=== PATIENT | female | born 1955 | race Caucasian/White ===

== ENCOUNTER 2019-04-21 09:02 | Outpatient (CLI) | payer OTHER, SELFPAY ==
--- NOTE | 2019-04-21 09:20 | EST_ITS ---
Patient Info Name: Moon Uriarte Age: 63 years : 1955 Gender: Female Ht: 64 in Wt: 197 lbs BSA: 2.05 m2 HR: 68 bpm BP: 135 / 99 mmHg Heart Rhythm: Sinus Rhythm Exam Date: 04/21/2019 11:02 AM Exam Location: [facility] Stress Patient Status: Outpatient Admit Date: 04/21/2019 Staff Ordering Physician: Jorge Chacko NP Attending Provider: Jorge Chacko NP Exercise Technologist: Moo Nieto RDCS, RT Exercise Physician: Isidoro Oh DO Exam Type: CA stress test treadmill Study Info Indications R42 - Dizziness and giddiness An exercise stress test was performed. Summary 1. 1. Negative Ryan exercise stress test for ischemic ST changes by ECG criteria. 2. 2. Mildly reduced functional capacity, achieving 7 METs of workload. 3. 3. Appropriate HR response to exercise. 4. 4. Appropriate HR recovery at 1 minute post exercise. 5. 5. No imaging with stress testing. 6. 6. Patient informed of the above results. Protocol: Ryan Stress ECG Details Stage: REST Duration (min): 1 min : 29 sec Speed (mph): 0.0 Grade (%): 0 HR (bpm): 79 SBP (mmHg): 135 DBP (mmHg): 99 METS: --- Stage: REST Duration (min): 4 min : 47 sec Speed (mph): 0.0 Grade (%): 0 HR (bpm): 83 SBP (mmHg): 135 DBP (mmHg): 99 METS: --- Stage: STAGE 1 Duration (min): 1 min : 0 sec Speed (mph): 1.7 Grade (%): 10 HR (bpm): 106 SBP (mmHg): 135 DBP (mmHg): 99 METS: --- Stage: STAGE 1 Duration (min): 2 min : 0 sec Speed (mph): 1.7 Grade (%): 10 HR (bpm): 117 SBP (mmHg): 135 DBP (mmHg): 99 METS: --- Stage: STAGE 1 Duration (min): 3 min : 0 sec Speed (mph): 1.7 Grade (%): 10 HR (bpm): 129 SBP (mmHg): 135 DBP (mmHg): 99 METS: --- Stage: STAGE 2 Duration (min): 1 min : 0 sec Speed (mph): 2.5 Grade (%): 12 HR (bpm): 138 SBP (mmHg): 135 DBP (mmHg): 99 METS: --- Stage: STAGE 2 Duration (min): 2 min : 0 sec Speed (mph): 2.5 Grade (%): 12 HR (bpm): 144 SBP (mmHg): 130 DBP (mmHg): 40 METS: --- Stage: STAGE 2 Duration (min): 2 min : 59 sec Speed (mph): 2.5 Grade (%): 12 HR (bpm): 149 SBP (mmHg): 130 DBP (mmHg): 40 METS: --- Stage: RECOVERY Duration (min): 1 min : 0 sec Speed (mph): 0.0 Grade (%): 0 HR (bpm): 124 SBP (mmHg): 130 DBP (mmHg): 40 METS: --- Stage: RECOVERY Duration (min): 2 min : 0 sec Speed (mph): 0.0 Grade (%): 0 HR (bpm): 111 SBP (mmHg): 130 DBP (mmHg): 40 METS: --- Stage: RECOVERY Duration (min): 3 min : 0 sec Speed (mph): 0.0 Grade (%): 0 HR (bpm): 100 SBP (mmHg): 141 DBP (mmHg): 89 METS: --- Stage: RECOVERY Duration (min): 3 min : 0 sec Speed (mph): 0.0 Grade (%): 0 HR (bpm): 100 SBP (mmHg): 141 DBP (mmHg): 89 METS: --- Rest HR: 83 bpm
--- NOTE | 2019-04-23 12:31 | WPDHOLTEREM ---
Holter/Event Monitor Holter/Event Monitor Date of procedure: 04/21/19 Procedure Type: 24 hour holter monitor Indications: Dizziness Conclusion: 1. 24 hour holter monitor on 04/21/19. 2. Underlying rhythm is sinus rhythm. HR range 44-126 bpm; average HR 70 bpm. 3. There are 3 premature supraventricular complexes. No supraventricular tachycardia. 4. No premature ventricular complexes. No ventricular tachycardia. 5. No sinoatrial or atrioventricular blocks. No significant pauses greater than 2 seconds. 6. Patient reports symptoms of chest pain which demonstrate sinus rhythm, 68-85 bpm.
== END 2019-04-21 09:03 | disposition home or self-care (01) ==
PROVIDERS: PCP Family Medicine; Visit Provider Nurse Practitioner Family
DX: R42 Dizziness and giddiness (principal); R55 Syncope and collapse
CPT/HCPCS: 93017; 93225; 93226

== ENCOUNTER 2020-04-05 11:26 | Outpatient (NON) | payer OTHER, SELFPAY ==
[2020-04-05 14:17] LABS: Influenza Control Positive
[2020-04-05 21:58] LABS: SARS-CoV-2 RNA PCR Positive
== END 2020-04-05 11:27 ==
LOC: ANHCOVIDDT 11:27
PROVIDERS: PCP Family Medicine; Visit Provider Nurse Practitioner Family
DX: U07.1 COVID-19 (principal); R50.9 Fever, unspecified
CPT/HCPCS: 87804; C9803; U0003; U0005

== ENCOUNTER → 2020-06-14 17:03 | Outpatient (CLI) | payer OTHER, SELFPAY ==
--- NOTE | ~2020-06-14 | MM_ITS ---
EXAMINATION: MM scrn go implant BI w maria m HISTORY: Screening mammogram TECHNIQUE: Craniocaudal and mediolateral oblique 3-D tomosynthesis images with implant displacement a nd synthetic 2-D images were generated. Craniocaudal and mediolateral oblique views of the breasts wi thout implant displacement were obtained using full field digital mammography. CAD analysis was submi tted and interpreted. COMPARISON: 1014 BREAST PARENCHYMAL COMPOSITION: There are scattered areas of fibroglandular density. FINDINGS: There is no evidence of suspicious mass, calcification, or architectural distortion to sugg est malignancy in either breast. There has been no suspicious interval change. IMPRESSION: 1. No mammographic evidence of malignancy. 2. Recommend routine screening mammography in one year. BI-RADS Category 1: Negative Reviewed, dictated and finalized at location A.
== END ==
PROVIDERS: PCP Family Medicine; Visit Provider Nurse Practitioner Obstetrics & Gynecology
DX: Z12.31 Encounter for screening mammogram for malignant neoplasm of breast (principal)
CPT/HCPCS: 77063; 77067

== ENCOUNTER → 2020-07-06 09:16 | Outpatient (CLI) | payer OTHER, SELFPAY ==
--- NOTE | ~2020-07-06 | XR_ITS ---
EXAMINATION: XR shoulder RT min 2V DATE: 07/06/2020 09:55 INDICATION: Right shoulder impingement syndrome and pain. TECHNIQUE: 4 views of right shoulder were obtained. COMPARISON: None. FINDINGS: Bone alignment is normal. No fracture. There is mild osteoarthritis of glenohumeral joint a nd moderate osteoarthritis of acromioclavicular joint. IMPRESSION: 1. Polyarticular osteoarthritis. Reviewed, dictated and finalized at location B.
--- NOTE | ~2020-07-06 | XR_ITS ---
EXAMINATION: XR shoulder LT min 2V DATE: 07/06/2020 09:55 INDICATION: Left shoulder impingement syndrome. Left shoulder pain. TECHNIQUE: 4 views of left shoulder were obtained. COMPARISON: None. FINDINGS: Bone alignment is normal. No fracture. There is mild osteoarthritis of the glenohumeral gage nt and moderate osteoarthritis of the acromioclavicular joint. There is mild calcific tendinitis of t he rotator cuff. IMPRESSION: 1. Polyarticular osteoarthritis. 2. Mild calcific tendinitis of the rotator cuff. Reviewed, dictated and finalized at location B.
== END ==
PROVIDERS: PCP Family Medicine; Visit Provider Family Medicine
DX: M75.40 Impingement syndrome of unspecified shoulder (principal); M19.012 Primary osteoarthritis, left shoulder; M19.011 Primary osteoarthritis, right shoulder
CPT/HCPCS: 73030

== ENCOUNTER → 2020-09-28 17:51 | Outpatient (CLI) | payer OTHER, SELFPAY ==
--- NOTE | ~2020-09-28 | DEXA_ITS ---
Bone Density Report Name: Moon Uriarte Age: 64 Sex: Female Ethnicity: White Date of : 1955 Indication: postmenopausal; screening for osteoporosis; Referring Provider: Hung, Pallavi Bro Study: Bone densitometry was performed. Exam Date: September 28, 2020 Accession number: [id number] Bone Density: Region BMD T-score Z-score Classification AP Spine (L1-L4) 1.040 -0.1 1.5 Normal Femoral Neck (Left) 0.869 0.2 1.6 Normal Total Hip (Left) 0.945 0.0 1.1 Normal Femoral Neck (Right) 0.903 0.5 1.9 Normal Total Hip (Right) 0.875 -0.6 0.5 Normal Total Hip Mean 0.910 -0.3 0.8 Normal World Health Organization criteria for BMD impression classify patients as: Normal (T-score at or above -1.0), Osteopenia (T-score between -1.0 and -2.5), or Osteoporosis (T-score at or below -2.5). 10-year Fracture Risk: FRAX not reported because: All T-scores for Spine Total, Hip Total, Femoral Neck at or above -1.0 Previous Exams: Region Exam Age BMD T-score BMD Change BMD Change Date g/cm2 vs Baseline vs Previous AP Spine(L1-L4) 09/28/2020 64 1.040 -0.1 -0.023* -0.023* 12/28/2010 55 1.063 0.1 Total Hip(Left) 09/28/2020 64 0.945 0.0 0.017 0.017 12/28/2010 55 0.929 -0.1 Total Hip(Right) 09/28/2020 64 0.875 -0.6 0.001 0.001 12/28/2010 55 0.874 -0.6 *Denotes significance at 95% confidence level, LSC for AP Spine = 0.022 g/cm2, LSC for Total Hip = 0.027 g/cm2 Clinical Information Provided by Patient: Patient maximum height was 64 Menopause Age: 54 No regular weight bearing exercise Does not regularly consume dairy products Onset of menses at age 18 Number of children 5 Impression: The patient has normal bone mass. The BMD for the AP Spine(L1-L4) decreased, changing by -0.023 since the last DXA exam. Discussion: BONE DENSITY IS ABOVE THE MINIMUM DESIRABLE LEVEL AT ALL SKELETAL SITES TESTED. This patient?s bone mineral density is above the minimum desirable level (T-score -1.0 or better) at all sites measured. The patient should follow a healthful lifestyle (good nutrition with adequate calcium and vitamin D, and appropriate weight-bearing exercise). Follow-Up: Consider repeating this study in 3 to 4 years to reassess this patient's status, or sooner if there is some new clinical indication. Reported by: [facility] on 09/28/2020 6:11:00 PM.
== END ==
PROVIDERS: PCP Family Medicine; Visit Provider Nurse Practitioner Obstetrics & Gynecology
DX: Z78.0 Asymptomatic menopausal state (principal)
CPT/HCPCS: 77080

== ENCOUNTER 2021-08-07 00:40 | Day surgery (SDC) | payer OTHER, SELFPAY ==
[2021-07-30 08:48] VITALS: BMI 37.0
[2021-08-07 10:18] VITALS: BP 148/94; PULSE 84; RESP 16; TEMP 36.7; O2SAT 96
[2021-08-07] MEDS: LACTATED RINGERS 1,000 ML 150 ML IV CONT (10:30)
--- NOTE | 2021-08-07 10:54 | WPDGICN ---
Assessment and Plan Assessment and plan (1) Change in stool: Code(s): R19.5 - Other fecal abnormalities Status: Acute Assessment and Plan: Patient has had alteration in her bowel habits consistent with irritable bowel syndrome. Plan to increase FiberCon to 2 tabs p.o. b.i.d.. Colonoscopy has been requested will be performed. Patient does have a very distant history of adenomatous colon polyp removed from the colon 2007. (2) Blood in stool: Code(s): K92.1 - Melena Status: Acute Assessment and Plan: Patient is notice blood in her stools. Likely attributed to hemorrhoids would recommend increasing fiber trying to maintain adequate bowel movements. Further recommendations will be given after endoscopy. GI Consult Note Consult date/time: 08/07/21 10:54 HPI: Moon Uriarte is a 65 year old female Presents for screening colonoscopy. Patient has a long history of irritable bowel syndrome. She reports diarrhea that alternates with constipation. Over the last 4 weeks she has noticed narrowed ribbon like stools. Additionally some blood in her stools when straining. She was advised to increase fiber in her diet. But this has failed to alleviate all of her symptoms. Patient denies any weight loss. She states she has had previous colonoscopies that have advised a identified hemorrhoids. Her rectal bleeding is attributed to this. Family history is noncontributory. Patient presents today for evaluation rectal bleeding. Review of Systems Review of Systems: Review of systems is noncontributory. [facility] Past Medical History Medical History Abnormal uterine bleeding Adult BMI 37.0-37.9 kg/sq m BMI 34.0-34.9,adult Colonic polyp COVID-19 Diverticulosis Elevated liver enzymes GERD (gastroesophageal reflux disease) Hemorrhoids HLD (hyperlipidemia) Hyperkalemia IBS (irritable bowel syndrome) Rectal polyp Shoulder impingement UTI (urinary tract infection) Surgical History Surgical History H/O tubal ligation History of ear surgery x3 Family History Family History Mother Family history of diabetes mellitus in first degree relative Diabetes mellitus Father Acute myocardial infarction Other Cerebrovascular accident Social History Social History Alcohol intake: current Substance use: never Substance use type: does not use Living arrangements: with family Additional living arrangements comments: Son lives with her Spiritual care concerns: No Meds Home Medications and Allergies Home Medications Medication Instructions Recorded Confirmed Type melatonin 5 mg capsule 5 mg PO .hs 07/25/21 08/07/21 History sodium sul 1.479 gram-potas ch See Rx Instructions PO PER PKG DIR 07/27/21 07/30/21 Rx 0.188 gram-magnes sul 0.225 gram #24 tabs tablet (Sutab) Allergies Allergy/AdvReac Type Severity Reaction Status Date / Time codeine AdvReac Mild Nausea and Verified 08/07/21 10:16 Vomiting Vital Signs Vital Signs - 24 hr 08/07/21 10:18 Temperature 98.0 F Pulse Rate 84 Respiratory Rate 16 Blood Pressure 148/94 H Pulse Oximetry 96 Oxygen Delivery Room Air Exam Narrative: Physical exam reveals patient to be alert. Vital signs stable. HEENT exam is unremarkable. Patient is anicteric. Lungs are clear to auscultation and percussion. Heart is without murmur or extra sounds. Abdominal exam bowel sounds are present soft nontender with no organomegaly. Digital external rectal exam is normal.
--- NOTE | 2021-08-07 11:13 | WPDANESEPPF ---
Anes - Initial Pre Proc Eval Procedure: Operation Date: 08/07/21 11:30 Proposed Procedures p Colonoscopy - Wiliam Lindsey MD Date/Time: 08/07/21 11:13 Surgeon: Wiliam Lindsey MD Pre Op Diagnosis: melena Patient Data Age: 65 Gender: F Height: 1.63 m Weight: 97.1 kg Last Vital Signs Temp 98.0 F 08/07/21 10:18 Pulse 84 08/07/21 10:18 Resp 16 08/07/21 10:18 BP 148/94 H 08/07/21 10:18 Pulse Ox 96 08/07/21 10:18 O2 Del Method Room Air 08/07/21 10:18 Allergies Allergy/AdvReac Type Severity Reaction Status Date / Time codeine AdvReac Mild Nausea and Verified 08/07/21 10:16 Vomiting Home Medications Medication Instructions Recorded Confirmed Type melatonin 5 mg capsule 5 mg PO .hs 07/25/21 08/07/21 History sodium sul 1.479 gram-potas ch See Rx Instructions PO PER PKG DIR 07/27/21 07/30/21 Rx 0.188 gram-magnes sul 0.225 gram #24 tabs tablet (Sutab) Patient hx anesthesia problems: none Family hx anesthesia problems: none Results Review: All pre-operative results and documents have been reviewed as part of the pre-operative evaluation. [facility] Past Medical History Medical History Abnormal uterine bleeding Adult BMI 37.0-37.9 kg/sq m BMI 34.0-34.9,adult Colonic polyp COVID-19 Diverticulosis Elevated liver enzymes GERD (gastroesophageal reflux disease) Hemorrhoids HLD (hyperlipidemia) Hyperkalemia IBS (irritable bowel syndrome) Rectal polyp Shoulder impingement UTI (urinary tract infection) Surgical History Surgical History H/O tubal ligation History of ear surgery x3 Family History Family History Mother Family history of diabetes mellitus in first degree relative Diabetes mellitus Father Acute myocardial infarction Other Cerebrovascular accident Social History Social History Alcohol intake: current Substance use: never Substance use type: does not use Living arrangements: with family Additional living arrangements comments: Son lives with her Spiritual care concerns: No Anes - Eval Final PreProcedure Day of Procedure 08/07/21 11:13 Patient weight: obese Heart: regular rate and rhythm Lungs: clear to auscultation Airway: Mallampati scale class III Neurological: alert and oriented Last oral intake: >/= 8 hours ASA classification: III Emergent: no Anesthetic plan: proceed Anesthesia type and monitoring: general GIVS and standard monitoring Results Review: All pre-operative results and documents have been reviewed as part of the pre-operative evaluation. Informed Consent: The patient's anesthetic plan and its attendant risks and benefits were discussed with the patient/family/POA. Questions were solicited and answers provided to the satisfaction of the patient/family/POA.
[2021-08-07] MEDS: SIMETHICONE ORAL SUSPENSION 20 MG/0.3 ML 30 ML BOTTLE 0.6 ML IRRIGATION (11:37)
[2021-08-07 11:47] VITALS: BP 109/74; PULSE 80; RESP 21; O2SAT 97
[2021-08-07 11:57] VITALS: BP 119/80; PULSE 69; RESP 20; O2SAT 93
[2021-08-07 12:07] VITALS: BP 120/75; PULSE 66; RESP 20; O2SAT 98
== END 2021-08-07 12:19 | disposition home or self-care (01) ==
PROVIDERS: PCP Family Medicine; Visit Provider Internal Medicine Gastroenterology
PROC: 0DJD8ZZ Inspection of Lower Intestinal Tract, Via Natural or Artificial Opening Endoscopic (ICD-10-PCS; CPT 45378; principal; 2021-08-07 11:30)
DX: K62.5 Hemorrhage of anus and rectum (principal); K59.00 Constipation, unspecified; Z86.010 Personal history of colon polyps; R19.5 Other fecal abnormalities; K64.8 Other hemorrhoids; Z86.16 Personal history of COVID-19; K57.30 Diverticulosis of large intestine without perforation or abscess without bleeding; R74.01 Elevation of levels of liver transaminase levels; K21.9 Gastro-esophageal reflux disease without esophagitis; E78.5 Hyperlipidemia, unspecified; E87.5 Hyperkalemia; K58.9 Irritable bowel syndrome, unspecified; E66.9 Obesity, unspecified; Z68.36 Body mass index [BMI] 36.0-36.9, adult
CPT/HCPCS: 45378; J2704; J7120

== ENCOUNTER 2021-10-04 13:22 | Emergency (ER) | payer OTHER, SELFPAY ==
--- NOTE | ~2021-10-04 | XR_ITS ---
XR hip RT min 2V DATE: 10/04/2021 13:53 INDICATION: Right hip pain. No injury. TECHNIQUE: AP and lateral views COMPARISON: None FINDINGS: No fracture or dislocation, avascular necrosis or bone destruction. Right hip joint space i s relatively well preserved. Pubic symphysis and right sacroiliac joint are intact. IMPRESSION: No significant abnormality Reviewed, dictated and finalized at location B. IMPRESSION: No significant abnormality
--- NOTE | 2021-10-04 13:26 | ED.EXTPRO ---
HPI - Extremity Problem General Chief complaint: Extremity Problem,Nontraumatic Stated complaint: Rt Hip Pain Time Seen by Provider: 10/04/21 13:30 Source: patient, RN notes reviewed and old records reviewed Mode of arrival: ambulatory Limitations: no limitations History of Present Illness HPI Narrative: 65-year-old female presents to the [facility] with complaints of right posterior hip pain with pain radiating down her leg. Had seen her primary on Friday, October 01 for the same. Was given a shot of steroids and referred to physical therapy, appt on Friday. After the medications she still not better. Prescription for muscle relaxer and tramadol. States tramadol made her sick so she stopped taking it. Pain is worse with standing and walking. When she sits and crosses her leg pain is nonexistent. No midline tenderness. No loss or retention of bowel or bladder. Patient reports shooting pain without numbness or tingling. No saddle anesthesia MD Complaint: extremity pain (right hip) Onset (ago): day(s) () Location: right Relieving factors: other (Certain positions) Exacerbating factors: walking and other (Standing) Related Data Home Medications Medication Instructions Recorded Confirmed melatonin 5 mg capsule 5 mg PO HS 07/25/21 10/04/21 Allergies Allergy/AdvReac Type Severity Reaction Status Date / Time codeine AdvReac Mild Nausea and Verified 10/04/21 13:24 Vomiting Review of Systems Review of Systems: All systems reviewed & are unremarkable except as noted in HPI and below Constitutional: Constitutional: Reports no additional constitutional complaints, Denies chills and Denies fever(s) Eyes: Eyes: Reports no additional eye complaints ENT: Reports system reviewed and no additional complaints, except as documented Cardiovascular: Cardiovascular: Reports no additional cardiovascular complaints Respiratory: Respiratory: Reports no additional respiratory complaints Gastrointestinal: Gastrointestinal: Reports no additional gastrointestinal complaints Musculoskeletal: Musculoskeletal: Reports as per HPI and Reports arthralgias (Right hip/SI joint) Integumentary/Breasts: Skin/Breast: Reports system reviewed and no additional complaints, except as docu Neurologic: Reports system reviewed and no additional complaints, except as documented Psychiatric: Psychiatric: Reports no additional psychiatric complaints Allergic/Immunologic: Allergic/Immunologic: Reports no additional allergic/immunologic complaints PMFSH Past Medical History Medical History Abnormal uterine bleeding Adult BMI 37.0-37.9 kg/sq m BMI 34.0-34.9,adult BMI 36.0-36.9,adult Colonic polyp COVID-19 Diverticulosis Elevated liver enzymes GERD (gastroesophageal reflux disease) Hemorrhoids HLD (hyperlipidemia) Hyperkalemia IBS (irritable bowel syndrome) Rectal polyp Shoulder impingement UTI (urinary tract infection) Surgical History Surgical History H/O tubal ligation History of ear surgery x3 Family History Family History Mother Family history of diabetes mellitus in first degree relative Diabetes mellitus Father Acute myocardial infarction Other Cerebrovascular accident Social History Social History Smoking status: Never smoker Tobacco type: cigarettes Smoking end date: 03/17/14 Alcohol intake: current Substance use: never Substance use type: does not use Additional living arrangements comments: Son lives with her Spiritual care concerns: No Comments At the time of my signature, I reviewed and agree with the nursing past medical, surgical, social, and family history. There is no relevant family history pertinent to the patient complaint. Exam Const: General: healthy appeari
[2021-10-04 13:27] VITALS: BP 137/90; PULSE 82; RESP 16; TEMP 36.7; O2SAT 96
== END 2021-10-04 14:04 | disposition home or self-care (01) ==
PROVIDERS: Emergency Provider Nurse Practitioner; PCP Family Medicine
DX: M54.31 Sciatica, right side (principal); K21.9 Gastro-esophageal reflux disease without esophagitis; E78.5 Hyperlipidemia, unspecified; Z86.16 Personal history of COVID-19
CPT/HCPCS: 73502; 99213; G0463

== ENCOUNTER → 2021-10-16 11:21 | Outpatient (CLI) | payer OTHER, SELFPAY ==
--- NOTE | ~2021-10-16 | XR_ITS ---
EXAM: XR lumbar spine min 4V DATE: 10/16/2021 12:01 HISTORY: M54.9 - Dorsalgia, unspecified . COMPARISON: None available. FINDINGS: Cholecystectomy clips. 5 nonrib-bearing lumbar-type vertebral bodies. Pedicles intact. 3 mm anterolisthesis of L4 on L5. Vertebral body heights preserved. Mild disc space narrowing at L4-5 and L5-S1. Multilevel facet sclerosis and hypertrophy, severe on the right at L4-5 and L5-S1. No fractur e or dislocation. IMPRESSION: Grade 1 anterolisthesis of L4 on L5. Lower lumbar degenerative disc disease. Severe lower lumbar facet arthropathy. Reviewed, dictated and finalized at location K.
== END ==
PROVIDERS: PCP Family Medicine; Visit Provider Physician Assistant Medical
DX: M25.559 Pain in unspecified hip (principal); M54.9 Dorsalgia, unspecified; M43.16 Spondylolisthesis, lumbar region; M51.36 Other intervertebral disc degeneration, lumbar region; M12.88 Other specific arthropathies, not elsewhere classified, other specified site
CPT/HCPCS: 72110

== ENCOUNTER 2021-10-29 08:42 | Emergency (ER) | payer OTHER, SELFPAY ==
--- NOTE | ~2021-10-29 | US_ITS ---
EXAMINATION: US venous doppler LE RT DATE: 10/29/2021 10:03 INDICATION: Discoloration with decreased distal pulses in the right lower limb. TECHNIQUE: Grayscale ultrasound images without and with compression and Doppler ultrasound images of the right lower extremity veins were obtained. COMPARISON: None. FINDINGS: The visualized portions of right common femoral vein, profunda (deep) femoral vein, femoral vein, pop liteal vein, peroneal trunk, posterior tibial veins, peroneal veins, gastrocnemius vein and greater s aphenous vein outflow are patent. IMPRESSION: 1. No deep venous thrombosis in the right lower limb. Reviewed, dictated and finalized at location A.
[2021-10-29 08:51] VITALS: BP 149/91; PULSE 95; RESP 16; TEMP 36.6; O2SAT 97
--- NOTE | 2021-10-29 09:13 | ED.EXTPRO ---
HPI - Extremity Problem General Chief complaint: Extremity Problem,Nontraumatic Stated complaint: right leg pain Time Seen by Provider: 10/29/21 08:46 History of Present Illness HPI Narrative: 65-year-old female presents to the emergency room for evaluation of discoloration to her right thigh. Patient states discoloration has been present for about 3 weeks. Reports over her 6 weeks ago developed low back pain that radiated into her right thigh. Patient was seen at her primary care's office at that time and given a steroid injection. States the steroid injection did not alleviate her symptoms. Begin using a heating pad to the affected area for an unknown period of time. Patient was again seen at her primary care physician's office and was told to start physical therapy. Patient continues to have low back pain that radiates into her right leg. Denies any injury or trauma. Denies long periods of stasis. Denies history of cancer. Denies history of blood clots. Related Data Home Medications Medication Instructions Recorded Confirmed melatonin 5 mg capsule 5 mg PO HS 07/25/21 10/16/21 Allergies Allergy/AdvReac Type Severity Reaction Status Date / Time codeine AdvReac Mild Nausea and Verified 10/29/21 09:00 Vomiting Review of Systems Review of Systems: CONSTITUTIONAL: Denies fever, chills, or sweats. EYES: Denies visual changes, redness, or discharge. ENT: Denies rhinorrhea, congestion, sore throat, or otalgia. CARDIOVASCULAR: Denies chest pain, palpitations, or edema. RESPIRATORY: Denies cough or dyspnea. GASTROINTESTINAL: Denies abdominal pain, nausea, vomiting, or diarrhea. GENITOURINARY: Denies dysuria or hematuria. SKIN: Reports skin discoloration to right thigh MUSCULOSKELETAL: Reports low back pain NEUROLOGIC: Denies headache, numbness, dizziness, or weakness. PSYCHIATRIC: Denies anxiety or depression. [facility] Past Medical History Medical History Abnormal uterine bleeding Adult BMI 37.0-37.9 kg/sq m BMI 34.0-34.9,adult BMI 36.0-36.9,adult Colonic polyp COVID-19 Diverticulosis Elevated liver enzymes GERD (gastroesophageal reflux disease) Hemorrhoids HLD (hyperlipidemia) Hyperkalemia IBS (irritable bowel syndrome) Rectal polyp Shoulder impingement UTI (urinary tract infection) Surgical History Surgical History H/O tubal ligation History of ear surgery x3 Family History Family History Mother Family history of diabetes mellitus in first degree relative Diabetes mellitus Father Acute myocardial infarction Other Cerebrovascular accident Social History Social History Smoking status: Never smoker Tobacco type: cigarettes Smoking end date: 03/17/14 Alcohol intake: former Substance use: never Substance use type: does not use Additional living arrangements comments: Son lives with her Spiritual care concerns: No Exam Narrative: GENERAL: Well-appearing, well-nourished, no physical limitations, and in no acute distress. HEAD: Normocephalic, atraumatic. EYES: Conjunctivae normal, PERRLA and EOMI. ENT: External nose normal, Nares clear, no rhinorrhea or epistaxis. Mucous membranes moist. Oropharynx without tonsillar hypertrophy exudate or other lesions. External ears normal, bilateral TMs normal bilaterally NECK: Supple. No meningeal signs. No adenopathy or masses. No carotid bruits or JVD CHEST: Clear to auscultation. No respiratory distress. No wheezes rales or rhonchi. No tenderness. HEART: Regular rate and rhythm. No murmur heard. Normal peripheral pulses. ABDOMEN: Soft, nontender, nondistended, normal active bowel sounds. : Normal external male/female exam. BACK: No CVA tenderness; midline lumbar tenderness, no step-offs, no bony abnormality; FROM
[2021-10-29 09:21] LABS: Basophils Absolute Auto 0.1 K/mm3 (0.0-0.1); Basophils Percent Auto 1.4 % (0.2-1.2); Eosinophils Absolute Auto 0.2 K/mm3 (0-0.3); Eosinophils Percent Auto 3.3 % (0-4.4); Hemoglobin 14.2 g/dL (12.0-15.0); Immature Granulocyte Absolute 0.02 K/mm3 (0.00-0.031); Immature Granulocyte Percent A 0.4 % (0-0.5); Lymphocytes Absolute Auto 1.82 K/mm3 (0.9-3.2); Lymphocytes Percent Auto 37.6 % (18.3-44.2); Mean Corpuscular HGB Conc 32.3 g/dl (32-36); Mean Corpuscular Hemoglobin 29.2 pg (26-34); Mean Corpuscular Volume 90.3 fl (80-100); Mean Platelet Volume 10.2 fl (7.4-10.4); Monocytes Absolute Auto 0.4 K/mm3 (0.1-0.6); Monocytes Percent Auto 7.6 % (2.6-8.5); Neutrophils Absolute Auto 2.4 K/mm3 (1.3-6.7); Neutrophils Percent Auto 49.7 % (45.5-73.1); Platelet Count Result 283 k/mm3 (150-375); Red Blood Count 4.87 M/mm3 (4.2-5.4); Red Cell Distribution Width 12.8 % (11.5-14.5); White Blood Count 4.8 K/mm3 (4.5-10.0)
[2021-10-29 09:40] LABS: Alanine Aminotransferase 18 U/L (6-35); Albumin Level 4.4 g/dL (3.5-5.1); Alkaline Phosphatase 83 U/L (38-126); Anion Gap 7 mmol/L (8-16); Aspartate Amino Transferase 21 U/L (14-36); Bilirubin,Total 0.4 mg/dL (0.2-1.3); Blood Urea Nitrogen 16 mg/dL (7-17); CRP < 0.5 mg/dL (<1.0); Carbon Dioxide 27 mmol/L (22-30); Chloride 103 mmol/L (98-107); Estimated CRCL calculation 80 ml/min; Estimated Glomerular Filt Rate > 60; Glucose 103 mg/dL (65-110); Potassium 4.6 mmol/L (3.4-5.0); Sodium 137 mmol/L (137-145)
[2021-10-29 09:40] LABS: Partial Thromboplastin Time 24.8 SECONDS (22.3-36.8); Prothrombin Time 12.9 Seconds (11.1-14.7)
[2021-10-29 09:46] LABS: D Dimer 0.93 ug/mL (<0.48)
[2021-10-29 10:23] LABS: Erythrocyte Sedimentation Rate 15 mm/hr (0-20)
[2021-10-29 11:07] VITALS: RESP 16
== END 2021-10-29 11:07 | disposition home or self-care (01) ==
PROVIDERS: Emergency Provider Nurse Practitioner Family; PCP Family Medicine
DX: L59.0 Erythema ab igne [dermatitis ab igne] (principal); Z86.16 Personal history of COVID-19; K57.90 Diverticulosis of intestine, part unspecified, without perforation or abscess without bleeding; K21.9 Gastro-esophageal reflux disease without esophagitis; E78.5 Hyperlipidemia, unspecified; Z87.440 Personal history of urinary (tract) infections
CPT/HCPCS: 36415; 80053; 85025; 85380; 85610; 85652; 85730; 86140; 93971; 99284

== ENCOUNTER 2022-03-29 13:12 | Emergency (ER) | payer OTHER, SELFPAY ==
--- NOTE | ~2022-03-29 | US_ITS ---
EXAMINATION: US venous doppler [facility] DATE: 03/29/2022 14:45 INDICATION: Left upper limb swelling. TECHNIQUE: Grayscale ultrasound images without and with compression and Doppler ultrasound images of the left upper extremity veins were obtained. COMPARISON: None. FINDINGS: The visualized portions of the left internal jugular vein, subclavian vein, axillary vein, brachial v eins, basilic vein, cephalic vein, radial vein, and ulnar vein are patent. IMPRESSION: 1. No deep venous thrombosis. Reviewed, dictated and finalized at location A. 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
[2022-03-29 13:15] VITALS: BP 175/98; PULSE 101; RESP 14; TEMP 36.2; O2SAT 96
--- NOTE | 2022-03-29 14:53 | ED.EXTPRO ---
HPI - Extremity Problem General Chief complaint: Extremity Problem,Nontraumatic Stated complaint: left arm swelling - R/O blood clot Time Seen by Provider: 03/29/22 13:48 History of Present Illness HPI Narrative: This is a 66-year-old female with history of left third digit distal amputation approximately a month and a half ago, who presents emergency department with left upper extremity swelling for the past month. She states the swelling is limited to the fingers of the left hand and is not painful. She denies chest pain, shortness of breath, palpitations or swelling elsewhere. She states she was told by her primary care doctor's office to present to the ED for an ultrasound of the left arm to evaluate for DVT. She has no other complaints today. Related Data Home Medications Medication Instructions Recorded Confirmed melatonin 5 mg capsule 5 mg PO HS 07/25/21 03/27/22 Allergies Allergy/AdvReac Type Severity Reaction Status Date / Time codeine AdvReac Mild Nausea and Verified 03/29/22 13:13 Vomiting Review of Systems Review of Systems: CONSTITUTIONAL: Denies fever, chills, or sweats. EYES: Denies visual changes, redness, or discharge. ENT: Denies rhinorrhea, congestion, sore throat, or otalgia. CARDIOVASCULAR: Left hand edema Denies palpitations, chest pain RESPIRATORY: Denies cough or dyspnea. GASTROINTESTINAL: Denies abdominal pain, nausea, vomiting, or diarrhea. GENITOURINARY: Denies dysuria or hematuria. SKIN: Denies rash or itching. MUSCULOSKELETAL: Denies back pain, joint pain, or myalgia. NEUROLOGIC: Denies headache, numbness, dizziness or weakness PSYCHIATRIC: Denies anxiety or depression. [facility] Past Medical History Medical History Abnormal uterine bleeding Adult BMI 37.0-37.9 kg/sq m Adult BMI 38.0-38.9 kg/sq m Adult BMI 39.0-39.9 kg/sq m BMI 34.0-34.9,adult BMI 36.0-36.9,adult Colonic polyp COVID-19 Diverticulosis Elevated liver enzymes GERD (gastroesophageal reflux disease) Hemorrhoids HLD (hyperlipidemia) Hyperkalemia IBS (irritable bowel syndrome) Rectal polyp Shoulder impingement UTI (urinary tract infection) Surgical History Surgical History H/O tubal ligation History of ear surgery x3 Family History Family History Mother Family history of diabetes mellitus in first degree relative Diabetes mellitus Father Acute myocardial infarction Other Cerebrovascular accident Social History Social History Smoking status: Never smoker Tobacco type: cigarettes Smoking end date: 03/17/14 Alcohol intake: former Substance use: never Substance use type: does not use Additional living arrangements comments: Son lives with her Spiritual care concerns: No Exam Narrative: GENERAL: Well-developed, well-nourished, and in no acute distress. HEAD: Normocephalic, atraumatic. EYES: PERRLA and EOMI. NECK: Supple. No adenopathy or masses. No carotid bruits or JVD CHEST: Clear to auscultation. No respiratory distress. No wheezes rales or rhonchi HEART: Regular rate and rhythm. No murmur heard. Normal peripheral pulses. ABDOMEN: Soft, nontender, nondistended, normal active bowel sounds. EXTREMITIES: Mild swelling of all fingers of the left hand without erythema. No other swelling of the left arm or other extremities noted. A splint is in place over the distal left, 3rd digit. Normal range of motion. SKIN: No rash, warm, and dry NEURO: No focal deficits. Alert and oriented x3. PSYCH: Normal mood and affect. Course Course Emergency Course: 15:05 -Ultrasound not concerning for DVT. Age-adjusted D-dimer negative. Discussed patient with her PCP, Dr. Saeed who is comfortable with discharge. Discussed return and emergent cautions including signs/sympto
[2022-03-29 15:11] VITALS: PULSE 82; RESP 12
[2022-03-29 15:18] VITALS: BP 155/105; PULSE 80; RESP 14; O2SAT 98
== END 2022-03-29 15:47 | disposition home or self-care (01) ==
PROVIDERS: Emergency Provider Preventive Medicine Aerospace Medicine; PCP Family Medicine
DX: M79.89 Other specified soft tissue disorders (principal); E78.5 Hyperlipidemia, unspecified; K21.9 Gastro-esophageal reflux disease without esophagitis; K58.9 Irritable bowel syndrome, unspecified; Z86.16 Personal history of COVID-19; Z87.19 Personal history of other diseases of the digestive system; Z86.010 Personal history of colon polyps; Z87.440 Personal history of urinary (tract) infections; Z87.891 Personal history of nicotine dependence; Z89.022 Acquired absence of left finger(s)
CPT/HCPCS: 93971; 99284

== ENCOUNTER → 2022-04-02 10:45 | Outpatient (CLI) | payer OTHER, SELFPAY ==
--- NOTE | ~2022-04-02 | XR_ITS ---
XR hand LT 2V DATE: 04/02/2022 11:18 INDICATION: Injury TECHNIQUE: AP and lateral views COMPARISON: None FINDINGS: There is amputation of the distal soft tissues and a portion of the tuft of the distal phal anx of the third digit. There is osteoarthritic change including space narrowing and spurring at the interphalangeal joints o f the digits. No other fracture or dislocation, periosteal reaction or bone destruction. No radiopaque soft tissue foreign body or subcutaneous emphysema. IMPRESSION: Amputation of distal soft tissues and partial amputation of the tuft of the third digit Osteoarthritis of the interphalangeal joints Reviewed, dictated and finalized at location L. AL PHOTOGRAPHER IMPRESSION: Amputation of distal soft tissues and partial amputation of the tuf t of the third digit Osteoarthritis of the interphalangeal joints
== END ==
PROVIDERS: PCP Family Medicine; Visit Provider Nurse Practitioner Family
DX: S69.92XA Unspecified injury of left wrist, hand and finger(s), initial encounter (principal); M19.042 Primary osteoarthritis, left hand; Z89.022 Acquired absence of left finger(s); T14.90XA Injury, unspecified, initial encounter
CPT/HCPCS: 73120

== ENCOUNTER 2022-04-19 09:34 | Outpatient (CLI) | payer OTHER, SELFPAY ==
--- NOTE | ~2022-04-19 | MR_ITS ---
MRI of the brain Clinical History: Headache, paresthesias Technique: Axial and sagittal T1-weighted images were acquired. These were followed by axial T2-weigh celia, diffusion weighted, gradient, and FLAIR images. Following intravenous administration of 20 cc Mu ltiHance gadolinium, T1-weighted fat-sat imaging was performed in the axial and coronal planes. Findings: There is no acute infarct, intracranial hemorrhage, or mass lesion. There are mild chronic white matter changes in the periventricular white matter bilaterally. Ventricles and subarachnoid spaces are unremarkable. Orbits are unremarkable. Paranasal sinuses and m astoid air cells are clear. Major intracranial flow voids are intact. Sagittal midline structures are intact. No abnormal postcontrast enhancement identified. IMPRESSION: No acute abnormality. Mild chronic white matter changes. Reviewed, dictated and finalized at location . 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
== END 2022-04-19 09:35 | disposition home or self-care (01) ==
PROVIDERS: PCP Family Medicine; Visit Provider Nurse Practitioner Family
DX: R51.9 Headache, unspecified (principal); R20.0 Anesthesia of skin; R20.2 Paresthesia of skin; R42 Dizziness and giddiness
CPT/HCPCS: 70553; A9577

== ENCOUNTER 2023-01-09 10:22 | Outpatient (CLI) | payer OTHER, SELFPAY ==
--- NOTE | ~2023-01-09 | CT_ITS ---
EXAMINATION: CT diagnostic chest wo con DATE: 01/09/2023 10:59 INDICATION: Solitary pulmonary nodule TECHNIQUE: Computed tomography (CT) of the chest was performed without intravenous contrast. The dose -length product was 364.61 mGy-cm. Automated exposure control and iterative reconstruction technique were employed. COMPARISON: CT dated 04/09/2019 FINDINGS: No significant pleural or pericardial effusion. There are bilateral breast implants. There is atherosclerosis of the aorta. Heart size is normal. No significant pleural or pericardial effusion . Status post cholecystectomy. There is right middle lobe atelectasis. No focal pneumonia. There is 2 mm right upper lobe nodule, likely benign. Mild thoracic spondylosis. IMPRESSION: 1. No acute cardiopulmonary disease. Reviewed, dictated and finalized at location L.
== END 2023-01-09 10:23 | disposition home or self-care (01) ==
PROVIDERS: PCP Family Medicine; Visit Provider Nurse Practitioner Family
DX: R91.1 Solitary pulmonary nodule (principal)
CPT/HCPCS: 71250